=== PATIENT | female | born 1950 | race Caucasian/White ===

== ENCOUNTER → 2018-10-20 | Outpatient (CLI) | payer MEDICARE, OTHER ==
[~2018-10-20] MED LIST: DULO60 PO; ONDA8 PO; OXYACE5T PO; TAMS.4ER PO
[2018-10-21 13:08] LABS: HPV 16 Negative (Negative); HPV 18 Negative (Negative); HPV OTHER HR TYPES Negative (Negative)
== END | disposition home or self-care (01) ==
LOC: LAB SHORT 12:15 → LAB 12:15
PROVIDERS: Nurse Practitioner Women's Health
DX: Z12.4 Encounter for screening for malignant neoplasm of cervix (principal); Z91.89 Other specified personal risk factors, not elsewhere classified
CPT/HCPCS: 87624; G0123

== ENCOUNTER → 2024-12-04 | Outpatient (CLI) | payer MEDICARE ==
[2024-12-04 20:40] LABS: Bacterial Vaginosis PCR Negative (NEGATIVE); Candida glabrata-krusei, PCR NOT DETECTED (NOT DETECT)
[2024-12-05 00:01] LABS: Candida Group, PCR DETECTED (NOT DETECT)
== END ==
LOC: LAB 18:08 → LAB SHORT 18:08
PROVIDERS: Family Medicine
DX: L29.2 Pruritus vulvae (principal)
CPT/HCPCS: 81515

== ENCOUNTER → 2024-12-17 | Outpatient (CLI) | payer MEDICARE | LOC: LAB 15:16 → LAB SHORT 15:16 | DX: L29.2 Pruritus vulvae (principal) | CPT/HCPCS: 88305 ==